=== PATIENT | female | born 1980 | race Caucasian/White ===

== ENCOUNTER 2018-11-05 21:27 | Emergency (ER) | payer SELFPAY ==
[2018-11-05] MEDS ORDERED: Aspirin Chewable 81 MG TAB ONE (22:01)
== END 2018-11-05 22:05 | disposition home or self-care (01) ==
LOC: BURERS 21:27
DX: M79.89 Other specified soft tissue disorders (principal); F17.210 Nicotine dependence, cigarettes, uncomplicated
CPT/HCPCS: 99281